=== PATIENT | male | born 1955 | race Two or more races ===

== ENCOUNTER 2022-12-12 20:00 | Emergency (ER) | payer BC, SELFPAY ==
--- NOTE | ~2022-12-12 | CT_ITS ---
Non-contrast CT scan of the Abdomen and Pelvis Clinical indication: Kidney stone Technique: 2.5 mm axial scans were obtained through the abdomen and pelvis without intravenous or or al contrast. Dose reduction technique was used on this scan by utilizing automated exposure control a nd iterative reconstruction technique. The dose-length product (DLP) was 421.61 mGy-cm. Findings: Images through the lung bases reveal no abnormalities. 5 mm nonobstructing right renal stone present. No right ureteral stone or right hydronephrosis. There is mild left hydronephrosis and mild asymmetric left perinephric stranding. There is a 4 mm nonobstr ucting left lower pole renal stone. There is a 3 mm stone at the left UVJ. The liver, spleen, pancreas, gallbladder, and adrenals appear normal. There is no aortic aneurysm. There is no evidence of bowel obstruction. Small fat-containing umbilical hernia noted. Images through the pelvis were performed. There is no evidence of ascites or lymphadenopathy. Urinary bladder otherwise unremarkable. Prostate gland is significantly enlarged. Impression: 3 mm left UVJ stone with mild left hydroureteronephrosis. Additional bilateral nonobstructing renal stones, as above. Small fat-containing umbilical hernia. Enlarged prostate gland. Reviewed, dictated and finalized at location . Impression: 3 mm left UVJ stone with mild left hydroureteronephrosis. Additional bilateral nonobstructing renal stones, as above. Small fat-containing umbilical hernia. Enlarged prostate gland.
[2022-12-12 20:02] VITALS: BP 152/84; PULSE 85; RESP 18; TEMP 36.7; O2SAT 98
[2022-12-12 21:01] LABS: Basophils Absolute Auto 0.1 K/mm3 (0.0-0.1); Basophils Percent Auto 0.4 % (0.2-1.2); Eosinophils Absolute Auto 0.2 K/mm3 (0-0.3); Eosinophils Percent Auto 1.2 % (0-4.4); Hematocrit 43.5 % (42.0-52.0); Immature Granulocyte Absolute 0.05 K/mm3 (0.00-0.031); Immature Granulocyte Percent A 0.4 % (0-0.5); Lymphocytes Absolute Auto 2.21 K/mm3 (0.9-3.2); Lymphocytes Percent Auto 16.2 % (18.3-44.2); Mean Corpuscular HGB Conc 34.5 g/dl (32-36); Mean Corpuscular Hemoglobin 28.7 pg (26-34); Mean Corpuscular Volume 83.2 fl (80-100); Mean Platelet Volume 10.1 fl (7.4-10.4); Monocytes Absolute Auto 1.3 K/mm3 (0.1-0.6); Monocytes Percent Auto 9.4 % (2.6-8.5); Neutrophils Absolute Auto 9.9 K/mm3 (1.3-6.7); Neutrophils Percent Auto 72.4 % (45.5-73.1); Platelet Count Result 235 k/mm3 (150-375); Red Blood Count 5.23 M/mm3 (4.6-6.20); Red Cell Distribution Width 15.7 % (11.5-14.5); White Blood Count 13.6 K/mm3 (4.5-10.0)
[2022-12-12 21:12] LABS: Alanine Aminotransferase 17 U/L (6-50); Albumin Level 4.8 g/dL (3.5-5.1); Alkaline Phosphatase 89 U/L (38-126); Anion Gap 9 mmol/L (8-16); Aspartate Amino Transferase 20 U/L (17-59); Blood Urea Nitrogen 29 mg/dL (9-20); Calcium 9.2 mg/dL (8.4-10.2); Carbon Dioxide 27 mmol/L (22-30); Chloride 100 mmol/L (98-107); Estimated CRCL calculation 35 ml/min; Estimated Glomerular Filt Rate 32; Glucose 129 mg/dL (65-110); Potassium 3.9 mmol/L (3.4-5.0); Sodium 136 mmol/L (137-145)
[2022-12-12] MEDS: ONDANSETRON INJ 4 MG/2 ML VIAL IV PUSH (21:15)
[2022-12-12] MEDS: MORPHINE SULFATE (*CRX) 4 MG/ML INJ IV PUSH ×2 (21:15→22:24)
[2022-12-12 21:17] LABS: Bacteria Urine None Seen /hpf; Mucus Urine Present /lpf; Need Manual Microscopic Reviewed; RBC Urine >100 /hpf (0-2); Squamous Epithelial Cell Urine Occasional /hpf (Few)
[2022-12-12 21:18] LABS: Appearance Urine Turbid (Clear); Bilirubin Urine Negative (Negative); Blood Urine 3+ (Negative); Glucose Urine UA Negative (Negative); Ketones Urine Trace mg/dL (Negative); Leukocyte Esterase Ur 1+ LEU/UL (Negative); Nitrate Urine Negative (Negative); Protein Urine 2+ mg/dL (Negative); Specific Grav Ur 1.016 (1.001-1.035)
[2022-12-12 21:19] LABS: Color Urine Dark Yellow (Yellow)
[2022-12-12 21:23] LABS: Add Urine Microscopic? YES
--- NOTE | 2022-12-12 21:34 | ED.ABDPAIN ---
HPI - Abdominal Pain General Chief Complaint: Abdominal Pain <Mickey Cook PA-C - Last Filed: 12/13/22 02:15> Stated Complaint: abd pain <Mickey Cook PA-C - Last Filed: 12/13/22 02:15> Time Seen by Provider: 12/12/22 20:30 <Miceky Cook PA-C - Last Filed: 12/13/22 02:15> Source: patient <TONY Solorzano Last Filed: 12/13/22 02:15> Mode of arrival: ambulatory <TONY Solorzano Last Filed: 12/13/22 02:15> Limitations: no limitations <Mickey Cook PA-C - Last Filed: 12/13/22 02:15> History of Present Illness HPI narrative: This is a 67-year-old male who presents to the ED with chief complaint of left flank pain radiating into the left lower quadrant onset today. Also notes associated pain in the testicular area radiating from the abdomen. Patient reports some nausea and 1 episode of emesis for similar pain a few days ago. Has been taking Advil at home with mild relief. Denies diarrhea, fevers, chills, dysuria or hematuria. <TONY Solorzano Last Filed: 12/13/22 02:15> Related Data Allergies/Adverse Reactions: Allergies Allergy/AdvReac Type Severity Reaction Status Date / Time No Known Allergies Allergy Verified 12/12/22 20:01 <Mickey Cook PA-C - Last Filed: 12/13/22 02:15> Review of Systems Review of Systems: CONSTITUTIONAL: Denies fever, chills, or sweats. EYES: Denies visual changes, redness, or discharge. ENT: Denies rhinorrhea, congestion, sore throat, or otalgia. CARDIOVASCULAR: Denies chest pain, palpitations, or edema. RESPIRATORY: Denies cough or dyspnea. GASTROINTESTINAL: See HPI GENITOURINARY: Denies dysuria or hematuria. SKIN: Denies rash or itching. MUSCULOSKELETAL: Denies back pain, joint pain, or myalgia. NEUROLOGIC: Denies headache, numbness, dizziness, or weakness. PSYCHIATRIC: Denies anxiety or depression. <Mickey Cook PA-C - Last Filed: 12/13/22 02:15> [facility] Past Medical History Medical History: Medical History (Updated 12/12/22 @ 23:21 by Mickey Cook PA-C) Cholelithiases <Mickey Cook PA-C - Last Filed: 12/13/22 02:15> Exam Narrative: GENERAL: Well-appearing, well-nourished, and in no acute distress. Writhing in bed. HEAD: Normocephalic, atraumatic. EYES: PERRLA and EOMI. ENT: Nares clear, no rhinorrhea or epistaxis. Mucous membranes moist. Oropharynx without tonsillar hypertrophy exudate or other lesions. NECK: Supple. No adenopathy or masses. CHEST: No respiratory distress. Clear to auscultation. No wheezes rales or rhonchi HEART: Regular rate and rhythm. No murmur heard. Normal peripheral pulses. ABDOMEN: Left flank tenderness present. Left lower quadrant tenderness as well. Soft, nondistended, normal active bowel sounds. Negative peritoneal signs. EXTREMITIES: Normal range of motion. No edema. SKIN: Warm, dry, no rash. NEURO: Alert and oriented x3. No focal deficits. Resting tremor. (Notes family history of tremor) PSYCH: Normal mood and affect. <Mickey Cook PA-C - Last Filed: 12/13/22 02:15> Course [employer]/PA Physician Supervision This is a was performed by both a physician and an APC. I performed all aspects of the MDM as documented w/ the following additions: 67-year-old male presenting with flank pain. Found to have a kidney stone. Discharged with appropriate medications and follow-up.All questions answered. Patient in agreement w/ disposition. <Jh Dang MD - Last Filed: 12/13/22 20:02> Vital Signs Vital signs: Vital Signs Temperature 98.1 F 12/12/22 20:02 Pulse Rate 85 12/12/22 20:02 Respiratory Rate 18 12/12/22 20:02 Blood Pressure 152/84 H 12/12/22 20:02 Pulse Oximetry 98 12/12/22 20:02 Oxygen Delivery Room Air 12/12/22 20:02 Temperature 98.1 F 12/12/22 20:02 Pulse Rate 86 12/12/22 23:58 Respiratory Rate 17 12/12/22 23:58 Blood Pressure 135/63 12/12/22 23:58 Pulse Oximetry 96 12/12/22 23:58 Oxygen Delivery Room
[2022-12-12 22:25] VITALS: BP 135/63; PULSE 62; RESP 16; O2SAT 96
--- NOTE | 2022-12-12 23:07 | PC.NURSE ---
Report received from BLAZE Graf. Assumed care of patient at this time.
[2022-12-12 23:37] VITALS: BP 135/63; PULSE 86; RESP 17; O2SAT 98
[2022-12-12 23:58] VITALS: BP 135/63; PULSE 86; RESP 17; O2SAT 96
== END 2022-12-12 23:59 | disposition home or self-care (01) ==
PROVIDERS: Emergency Medicine; Emergency Provider Physician Assistant
DX: N13.2 Hydronephrosis with renal and ureteral calculous obstruction (principal)
CPT/HCPCS: 36415; 74176; 80053; 81001; 85025; 87086; 96365; 96375; 96376; 99284; J0696; J2270; J2405